=== PATIENT | male | born 1985 | race Caucasian/White ===

== ENCOUNTER 2021-08-05 02:52 | Emergency (ER) | payer OTHER ==
[~2021-08-05] VITALS: Ht 172.7 cm; Wt 76.2 kg
[2021-08-05 03:19] VITALS: BP 112/59
--- NOTE | 2021-08-05 03:20 | NUR ---
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 PT A/OX4. TOLERATING R/A WELL WITH NO SOB. PT IN NO ACUTE DISTRESS AT THIS TIME. CONNECTED PT TO POX AND MONITOR.
[2021-08-05] MEDS ORDERED: DICYCLOMINE HCL INJ 20 MG/2 ML AMPUL IM ONE (03:24)
[2021-08-05] MEDS ORDERED: ONDANSETRON HCL/PF 4 MG/2 ML VIAL ONE (03:24)
--- NOTE | 2021-08-05 03:26 | NUR ---
LAC #18G S/L; BLOOD COLLECTED AND SENT TO LAB
[2021-08-05] MEDS: ONDANSETRON HCL/PF 4 MG/2 ML VIAL IVP ONE (03:29)
[2021-08-05] MEDS: IV NS 0.9% 1,000 ML BAG IV ONE (03:29)
[2021-08-05] MEDS: DICYCLOMINE HCL INJ 20 MG/2 ML AMPUL IM ONE (03:29)
[2021-08-05 03:39] LABS: BASOPHILS % (AUTO) 0.2 % (0.0-2.0); EOSINOPHILS % (AUTO) 0.9 % (0.0-6.0); HEMATOCRIT 45 % (39-51); HEMOGLOBIN 15.3 g/dL (13.5-17.5); LYMPHOCYTES # (AUTO) 0.9 K/uL (0.8-4.8); LYMPHOCYTES % (AUTO) 5.7 % (20.0-44.0); MEAN CORPUSCULAR HGB CONC 34 g/dl (31.0-36.0); MEAN CORPUSCULAR VOLUME 86 fL (80-96); MONOCYTES # (AUTO) 0.9 K/uL (0.1-1.30); MONOCYTES % (AUTO) 5.7 % (2.0-12.0); NEUTROPHILS # (AUTO) 14.3 K/uL (1.8-8.9); NEUTROPHILS % (AUTO) 87.5 % (43.0-81.0); PLATELET COUNT (AUTO) 277 K/uL (150-450); RED BLOOD CELL COUNT(AUTO) 5.21 MIL/uL (4.5-6.0); WHITE BLOOD COUNT (AUTO) 16.3 K/uL (4.3-11.0)
[2021-08-05 03:52] LABS: ALBUMIN 4.2 g/dL (3.4-5.0); BILIRUBIN,DIRECT 0.1 mg/dL (0.0-0.2); BILIRUBIN,TOTAL 0.5 mg/dL (0.2-1.0); TOTAL PROTEIN, SERUM 7.5 g/dL (6.4-8.2)
[2021-08-05] MEDS ORDERED: ONDA4TAB5 PO (04:34)
[2021-08-05 04:36] LABS: BILIRUBIN,URINE SMALL (NEGATIVE); COLOR,URINE YELLOW (YELLOW); LEUKOCYTE ESTERASE ,URINE NEGATIVE (NEGATIVE); NITRITE, URINE NEGATIVE (NEGATIVE); PROTEIN,URINE TRACE mg/dl (NEGATIVE); UGLUCOSE NEGATIVE (NEGATIVE); UROBILINOGEN,URINE 0.2 EU/dL (0.2)
--- NOTE | 2021-08-05 04:45 | NUR ---
Patient discharged to home in stable condition. Written and verbal after care instructions given. Patient verbalizes understanding of instruction.
== END 2021-08-05 04:45 | disposition home or self-care (01) ==
LOC: ER 03:11
DX: K52.9 Noninfective gastroenteritis and colitis, unspecified (principal); R10.84 Generalized abdominal pain; Z79.899 Other long term (current) drug therapy
CPT/HCPCS: 36415; 74176; 80048; 80076; 81003; 83690; 85025; 85730; 96361; 96372; 96374; 99284; J0500; J2405; J7030